=== PATIENT | male | born 1940 | race Caucasian/White ===

== ENCOUNTER → 2024-05-15 11:21 | Outpatient (REF) | payer OTHER, SELFPAY | LOC: RAD 11:21 | PROVIDERS: ATTENDING PHYSICIAN Specialist; FAMILY PHYSICIAN Family Medicine | DX: N40.1 Benign prostatic hyperplasia with lower urinary tract symptoms (principal) | CPT/HCPCS: 74018 ==

== ENCOUNTER → 2024-12-27 08:50 | Outpatient (REF) | payer OTHER, SELFPAY | LOC: HWRAD 08:50 | PROVIDERS: ATTENDING PHYSICIAN Specialist; FAMILY PHYSICIAN Family Medicine | DX: N20.0 Calculus of kidney (principal); R31.0 Gross hematuria | CPT/HCPCS: 74176 ==

== ENCOUNTER 2025-01-30 06:21 | Day surgery (SDC) | payer OTHER, SELFPAY ==
[2025-01-22 14:03] VITALS: BMI 22.1
[2025-01-30] VITALS (8 sets, daily range): BP systolic 80–95; BP diastolic 60–69
[2025-01-30] MEDS: NORMOSOL-R/PLASMALYTE-A 1000 IV (09:35)
[2025-01-30 09:41] LABS: Glucose - Point of Care 105 mg/dl (70-99)
[2025-01-30 11:19] LABS: Glucose - Point of Care 121 mg/dl (70-99)
== END 2025-01-30 12:50 | disposition home or self-care (01) ==
LOC: SDS 06:21
PROVIDERS: ATTENDING PHYSICIAN Specialist; FAMILY PHYSICIAN Family Medicine
DX: N20.0 Calculus of kidney (principal); N40.0 Benign prostatic hyperplasia without lower urinary tract symptoms; R31.0 Gross hematuria
CPT/HCPCS: 52356; 36415; 74018; 76000; 82962; 93005; C1758; C1769; C2617